=== PATIENT | female | born 1950 | race African-American/Black ===

== ENCOUNTER 2020-07-03 15:23 | Emergency (ER) | payer MEDICARE, MEDICAID ==
[~2020-07-03] VITALS: Ht 165.1 cm; Wt 54.0 kg
[2020-07-03 15:44] VITALS: BP 132/78
[2020-07-03] MEDS ORDERED: ACETAMINOPHEN 325MG TABLET PO ONE (16:30)
== END 2020-07-03 17:45 | disposition home or self-care (01) ==
LOC: ER 15:23
DX: S00.83XA Contusion of other part of head, initial encounter (principal); S16.1XXA Strain of muscle, fascia and tendon at neck level, initial encounter; V79.88XA Bus occupant (driver) (passenger) injured in other specified transport accidents, initial encounter; Y93.89 Activity, other specified; Y92.410 Unspecified street and highway as the place of occurrence of the external cause; Z88.0 Allergy status to penicillin
CPT/HCPCS: 99284